=== PATIENT | male | born 1970 | race Caucasian/White ===

== ENCOUNTER 2018-06-06 16:15 | Inpatient (IN) | payer OTHER ==
[2018-06-06] MEDS ORDERED: AMIODARONE HCL 150 MG/3 ML VIAL IV ONE (16:28)
[2018-06-06] MEDS ORDERED: AMIODARONE HCL 150 MG/3 ML VIAL ONE (16:29)
[2018-06-06] MEDS ORDERED: LIDOCAINE 1% 300 MG/30 ML SDV ONE (16:34)
[2018-06-06] MEDS ORDERED: fentaNYL 100 MCG/2 ML INJ ONE (16:34)
[2018-06-06] MEDS ORDERED: NITROGLYCERIN 1,500 MCG/15 ML VIAL MISC ONE (16:35)
[2018-06-06] MEDS ORDERED: MIDAZOLAM 2 MG/2 ML VIAL ONE (16:35)
[2018-06-06] MEDS ORDERED: BIVALIRUDIN 250 MG/5 ML VIAL IV ONE ×2 (16:35→17:57)
[2018-06-06] MEDS ORDERED: IOPAMIDOL (ISOVUE 370) 100 ML BTL IV ONE (16:36)
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
[2018-06-06 16:50] LABS: PLATELET COUNT 214 10^3/uL (150-400)
[2018-06-06] MEDS ORDERED: ATROPINE SULFATE 1 MG/10 ML SYR ONE (16:56)
[2018-06-06] MEDS ORDERED: AMIODARONE HCL 150 MG/100 ML BAG (1.5 MG/ML) IV ONE (17:01)
[2018-06-06] MEDS ORDERED: METOPROLOL TARTRATE 5 MG/5 ML INJ ONE (17:12)
[2018-06-06] MEDS ORDERED: ASPIRIN 325 MG TAB ONE (17:57)
[2018-06-06] MEDS ORDERED: PRASUGREL HCL 10 MG TAB ONE (17:58)
[2018-06-06] MEDS ORDERED: OXYCODONE/APAP 5/325 TAB PO PRN (17:59)
[2018-06-06] MEDS ORDERED: ONDANSETRON 4 MG/2 ML VIAL IVP PRN (17:59)
[2018-06-06] MEDS ORDERED: HYDROCODONE/APAP 5/325 TAB PO PRN (17:59)
[2018-06-06] MEDS ORDERED: NITROGLYCERIN 0.4 MG BTL SL PRN (17:59)
[2018-06-06] MEDS ORDERED: TEMAZEPAM 15 MG CAP PO PRN (17:59)
[2018-06-06] MEDS ORDERED: PRASUGREL HCL 10 MG TAB PO ONE (17:59)
[2018-06-06] MEDS ORDERED: ATROPINE SULFATE 1 MG/10 ML SYR IVP PRN (17:59)
[2018-06-06] MEDS ORDERED: LORazepam 2 MG/ML INJ IVP PRN (17:59)
[2018-06-06] MEDS ORDERED: NS 1,000 ML IV SCH ×2 (18:00→19:00)
[2018-06-06] MEDS ORDERED: PROPOFOL/EMULSION 1,000 MG/100 ML BOTTLE IV ONE (18:32)
[2018-06-06] MEDS ORDERED: niCARdipine/NACL/200 ML BAG IV ONE (18:40)
[2018-06-06] MEDS ORDERED: PROPOFOL/EMULSION 100 ML IV SCH (18:48)
[2018-06-06] MEDS ORDERED: fentaNYL/NACL 100 ML IV SCH ×2 (18:48→19:00)
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
[2018-06-06] MEDS ORDERED: NS 250 ML IV PRN (19:00)
[2018-06-06] MEDS ORDERED: NS 1,000 ML IV ONE (19:00)
[2018-06-06] MEDS ORDERED: MIDAZOLAM HCL 50 MG in D5W 50 ML IV PRN (19:00)
[2018-06-06] MEDS ORDERED: fentaNYL 100 MCG/2 ML INJ IVP ONE (19:00)
[2018-06-06] MEDS ORDERED: niCARdipine/NACL 200 ML IV PRN (19:00)
[2018-06-06] MEDS ORDERED: MIDAZOLAM 2 MG/2 ML VIAL IVP PRN (19:00)
[2018-06-06] MEDS ORDERED: RN MUST ADD K & MAG PROT TO WORKLIST MISC ONE (19:00)
[2018-06-06] MEDS ORDERED: HEPARIN 10,000 UNIT/10 ML MDV (1,000 UNIT/ML) IVP PRN (19:04)
[2018-06-06] MEDS: VECURONIUM BROMIDE 50 MG in D5W 50 ML IV SCH (19:12)
[2018-06-06 19:17] LABS: INR 4.42 (0.83-1.16); PROTIME(PATIENT) 41.7 SEC (12.0-15.0)
[2018-06-06] MEDS: POTASSIUM Cl (KCl) 100 ML IV SCH ×2 (19:24→19:25)
[2018-06-06 20:01] LABS: CREATINE KINASE 2987 IU/L (0-224)
[2018-06-06] MEDS ORDERED: D5W 1,000 ML IV SCH (20:22)
[2018-06-06] MEDS ORDERED: INSULIN REGULAR HUMAN 100 UNIT in NS 100 ML IV SCH (20:22)
[2018-06-06] MEDS ORDERED: D50W 25 GM/50 ML SYR IVP PRN (20:22)
[2018-06-06] MEDS: CARVEDILOL 3.125 MG TAB PO SCH (20:51)
[2018-06-06] MEDS: LISINOPRIL 5 MG TAB PO SCH (20:51)
[2018-06-06] MEDS: ATORVASTATIN CALCIUM 40 MG TAB PO SCH (20:51)
[2018-06-06] MEDS: NOREPINEPHRINE BITARTRATE 4 MG in NS 500 ML IV PRN (21:02)
[2018-06-06] MEDS: HEPARIN/DEXTROSE 500 ML IV SCH (22:00)
--- NOTE | 2018-06-06 22:02 | CPIP ---
PROCEDURE PERFORMED: 1. Selective coronary angiography. 2. Left heart catheterization. 3. Left ventriculogram. 4. Percutaneous transluminal coronary angioplasty and stent placement of the mid right coronary stevie ry with the use of a 3.0 x 24 Synergy drug-eluting stent. 5. Percutaneous transluminal coronary angioplasty of an acute marginal branch for inadequate and YANCY I 1 flow post acute infarct angioplasty. 6. Intra-aortic balloon pump placement. 7. Placement of cooling catheter for purposes of targeted temperature management. PROCEDURE IN DETAIL: After emergent consent was implied by the emergency nature of the situation, th e patient was taken emergently to the catheterization laboratory. The regions of the right and left groins were cleaned, prepped, and draped in sterile fashion. Approximately 5 cc of 1% lidocaine was used for local anesthesia. A micropuncture set was used to gain access to the right common femoral a rtery with single entry puncture of the vessel, switched out for a 6-Ghanaian sheath. The patient unde rwent diagnostic angiography with the use of JL4 diagnostic catheter followed by a 6-Ghanaian JR4 janey ng catheter. The left main coronary is 8 mm in size, trifurcates into an LAD, circumflex, and ramus intermedius system. The circumflex is a 4 mm vessel with 30% obstruction in its proximal segment. I t gives rise to 2 important obtuse marginal branches. The ramus intermedius is small, approximately 1.5 mm in size and free of flow-limiting obstruction. The LAD is 3 mm in size, giving rise to a firs t and principal diagonal, which is approximately 2 mm in size. The LAD thereafter courses the anteri or apex. There was no evidence of flow-limiting obstruction, dissection, or thrombus. There was bethany dence of some distal xgye-lv-dziho collaterals. The right coronary artery was identified with a 6-Ghanaian guiding catheter. Initial picture of the [facility] coronary artery showed it to be a dominant vessel, approximately 4 mm in size and completely occl uded with DANISH 0 flow. Wire was quickly placed across the lesion and it was ballooned open with a 2. 0 x 15 Emerge balloon. There was improvement in flow to DANISH 2 post balloon inflation. The right co ronary artery was then stented secondarily with a 3.0 x 24 Synergy drug-eluting stent with excellent angiographic results and 10% residual stenosis status post PTCA and stent placement. There was excel lent DANISH 3 flow to the PDA and PLV branches. Of note is that there was sluggish flow within a large acute marginal branch. The wire was therefore redirected in this area and the 2.0 balloon was used to perform balloon angioplasty in this area to help break apart an embolized clot. Subsequent angiography documented brisk and DANISH 3 flow into the acute marginal branch with excellent flow in the region of the stent and no evidence of subacute thr ombosis or staining in that area. The patient underwent left heart catheterization, demonstrating elevated left ventricular end-diastol ic pressure measured at 16 mmHg. The patient underwent left ventriculogram in the HEAD projection, de monstrating severely depressed left ventricular systolic function. Ejection fraction is 25% to 30%. There is distal anterior wall and apical hypokinesis with severe basal inferior wall hypokinesis. O n LV gram, there may be a filling defect in the distal inferior wall consistent with intracardiac thr ombus. Because of the findings on LV gram, and persistent ST-segment elevation and complex ventricular rhyth m disturbance with salvos of ventricular bigeminy and nonsustained VT post acute infarct angioplasty, the decision was made to switch out the 6-Ghanaian sheath for an 8-Ghanaian balloon pump sheath. Angiog rashmi was performed of the femoral artery, and it was approximately 6 mm in size. We therefore proce eded with placement of intra-aortic balloon pump. This was appropriately zeroed, flushed, connected to the helium tubing as well as the pressure catheters, and was noted to be augmenting well. The pat ient received additional IV amiodarone as well as IV doses of Lopressor 5 mg x2 while in the slab lifting engineer . An NG tube was placed, and the patient was continued on Angiomax for anticoagulation. The patient wa s also given oral bolus dose of Effient at 60 mg along with aspirin 325 mg. We then proceeded with i dentification of the femoral vein. A J-wire was placed into the femoral vein under direct fluoroscop ic guidance, and that wire was used to dilate a tract into the femoral vein, and a cooling catheter w as placed and sutured into place with the distal ring for the cooling position in the common femoral vein for purposes of targeted temperature management. The patient will be taken to the ICU in critic al condition with guarded prognosis on a respirator, intra-aortic balloon pump at one-to-one augmenta tion, along with the HACA catheter with HACA orders to follow. The patient will be artificially para lyzed and sedated for purposes of the HACA protocol and targeted temperature management. The patient 's prognosis is, of course, grim, given his fae-[id number] arrest. Copy requested to: PCP /[id number]/MODL
[2018-06-06] MEDS ORDERED: PROTOCOL POTASSIUM 1 DOSE MISC PRN (22:07)
[2018-06-06] MEDS ORDERED: PROTOCOL MAGNESIUM 1 DOSE IV PRN (22:07)
[2018-06-06 22:43] LABS: CREATINE KINASE 5070 IU/L (0-224)
[2018-06-06] MEDS: PETROLAT,WHT/MIN OIL/SOD CHL 3.5 GM OPHT.OINT EACHEYE PRN (22:54)
[2018-06-07 01:05] LABS: INR 1.24 (0.83-1.16); PROTIME(PATIENT) 15.8 SEC (12.0-15.0)
[2018-06-07 01:21] LABS: CREATINE KINASE 5299 IU/L (0-224)
[2018-06-07] MEDS: VECURONIUM BROMIDE 50 MG in D5W 50 ML IV SCH ×3 (02:12→21:19)
[2018-06-07] MEDS ORDERED: SODIUM BICARBONATE 50 MEQ/50 ML SYR ONE (02:41)
[2018-06-07] MEDS ORDERED: SODIUM BICARBONATE 50 MEQ/50 ML SYR IVP ONE (02:45)
[2018-06-07] MEDS ORDERED: FUROSEMIDE 20 MG/2 ML VIAL IVP ONE (03:00)
[2018-06-07] MEDS: PROPOFOL/EMULSION 100 ML IV SCH ×2 (03:49→16:30)
[2018-06-07] MEDS: SODIUM BICARBONATE 150 MEQ in D5W 1,000 ML IV SCH ×2 (03:49→21:25)
[2018-06-07 05:13] LABS: CREATINE KINASE 4777 IU/L (0-224)
[2018-06-07 06:22] LABS: PLATELET COUNT 206 10^3/uL (150-400)
--- NOTE | 2018-06-07 06:48 | PDMN ---
Medical Necessity Medical necessity: Pt meets inpt criteria per MD order and MCG M-230, Myocardial Infarction, 2 days. 47 y/o admitted as cardiac alert, acute inferior CO, out of hospital cardiac arrest w/BLS and ACLS, urgently taken to senior cytogenetics laboratory director: PTCA/stent placement, balloon pump placement, ICU care, anticipate>2mn as pt in critical, guarded condition.
[2018-06-07 07:12] LABS: CREATINE KINASE 4633 IU/L (0-224)
--- NOTE | 2018-06-07 07:28 | CPEKG ---
Test Reason : OPEN Blood Pressure : / mmHG Vent. Rate : 065 BPM Atrial Rate : 066 BPM P-R Int : 187 ms QRS Dur : 106 ms QT Int : 469 ms P-R-T Axes : 077 056 001 degrees QTc Int : 488 ms Sinus rhythm Inferior infarct, recent Compared with 06/06/2018 inferior KALEB have improved; HR slower Confirmed by Arabella Jackson ([id number]) on 06/07/2018 7:27:50 AM Referred By: Naeem Downing Confirmed By:Arabella Jackson
[2018-06-07] MEDS: CARVEDILOL 3.125 MG TAB PO SCH ×2 (08:15→19:53)
[2018-06-07] MEDS ORDERED: ASPIRIN EC 325 MG TAB PO SCH (09:00)
[2018-06-07] MEDS ORDERED: PRASUGREL HCL 10 MG TAB PO SCH (09:00)
[2018-06-07] MEDS ORDERED: RN MUST ADD CA+ & PHOS PROTOCOL TO WORKLIST MISC SCH (09:00)
[2018-06-07] MEDS ORDERED: RN MUST REMOVE K+ & MG+ PROTOCOL FRM WORKLIST MISC SCH (09:00)
[2018-06-07] MEDS: LISINOPRIL 5 MG TAB PO SCH (09:23)
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
[2018-06-07] MEDS: NOREPINEPHRINE BITARTRATE 4 MG in NS 500 ML IV PRN (10:09)
--- NOTE | 2018-06-07 10:47 | GHP ---
DATE OF ADMISSION: 06/06/2018 REFERRING PHYSICIAN: Naeem Downing MD Pulmonary/Critical Care Consultation REASON FOR REFERRAL: Evaluation and management of respiratory failure and cardiac arrest. HISTORY: The patient is a 47-year-old male, who was working [place] his [place], just outside of [place], when he came back from some heart exertion in the cold. He laid down on the floor in front of firep lace and a friend walked out of the room, then came back in shortly thereafter and witnessed him havi ng seizure-like activity. He was unresponsive and bystander CPR was begun immediately. EMS was call ed. He had continuous bystander CPR, then an AED was placed by EMS and the patient was shocked x3 an d a round of drugs were given. The patient returned spontaneous circulation, and has had spontaneous circulation since that time. He was flown here via air helicopter. Apparently, at some point after return of spontaneous circulation, he had some spontaneous vocalizations, but while in the helicopte r, he dropped his oxygen saturations, became unable to protect his airway, had some posturing-like ac tivity, so was paralyzed, sedated and intubated. He has been unresponsive since that time. He was s een in the emergency department by Dr. Downing, who took him urgently to the catheterization lab, [facility] with spontaneous circulation. He was found to have an occluded right coronary artery, as was suspe cted from the ECGs. This was treated with angioplasty and stenting with an excellent result. The pa tient's ejection fraction was estimated at 25%-30% with severe basal inferior wall hypokinesis. Ther e was also possible intracardiac thrombus. There was some nonsustained VT, status post the angioplas ty. An intra-aortic balloon pump was placed and the patient was started on the HACA protocol. PAST MEDICAL HISTORY: Negative/unknown. MEDICATIONS: Unknown. ALLERGIES: No known drug allergies per the patient's mother. 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 FAMILY HISTORY: Unknown. REVIEW OF SYSTEMS: Unobtainable. PHYSICAL EXAMINATION: GENERAL: The patient is intubated, sedated and paralyzed. VITAL SIGNS: Bloo d pressure 120/60 with a heart rate of 60. He is cooled to 33 degrees. His oxygen saturations are i n the 90s. HEENT: Normocephalic and atraumatic. NECK: No adenopathy. Trachea is midline. CHEST: Clear to auscultation. CARDIAC: Regular rate and rhythm with an intra-aortic balloon pump. ABDOM EN: Soft. Bowel sounds are hypoactive. EXTREMITIES: No clubbing, cyanosis, or edema. NEURO: The patient is intubated and sedated. His pupils are 2-3 mm and nonreactive. LABORATORY: Chemistry group shows a creatinine of 1.1, AST is 356 with an LDH of 2314, and troponin is 53, down from 66. Hemoglobin is 15.7, white blood count is 24.8 with 2% bands. An INR is 1.2. A n arterial blood gas shows a pH of 7.39, with a pO2 of 89, a CO2 of 29, and a bicarbonate of 19 on 90 % oxygen with a respiratory rate of 30, a tidal volume of 470 and a PEEP of 15. Toxicology screen is positive for marijuana and benzodiazepines. IMAGING: Chest x-ray shows some right upper lung field infiltrate, otherwise clear. The endotrachea l tube and intra-aortic balloon pump are appropriately positioned. Images were reviewed by me. ASSESSMENT: 1. Status post suk-bs-maijuavy cardiac arrest. The patient had return of spontaneous circulation fo llowing continuous bystander cardiopulmonary resuscitation and an automated external defibrillator. 2. Status post right coronary artery, inferior myocardial infarction. The patient apparently had a large infarct with significant residual regional wall motion abnormality and a reduced ejection fract ion. He had blood pressures as low as the 60s earlier this morning, responded to pressors. He is cu rrently on norepinephrine to maintain blood pressure and has not been on anything more. 3. Possible left ventricular intracardiac thrombus. This was seen on angiography. The patient is o n heparin. 4. Respiratory failure. The patient has been intubated since the helicopter flight here. He had si gnificant hypoxemia overnight, for unclear reasons, as his chest x-ray was fairly clear. This is imp roved this morning, and he is currently on 60% oxygen. His PEEP was as high as 15, now turned down t o 12, and I will be turning it down further. 5. Elevated liver function tests. These are likely due to shock. RECOMMENDATIONS: 1. Continue the HACA protocol. This will be continued until rewarming begins at about 6:00 p.m. ton ight. 2. Continue to try and wean down FiO2 and PEEP as tolerated. Acid-base status will be monitored. Simon cleary was started on a bicarb drip last night, due to worsening metabolic acidosis, but this is improved and the bicarb drip will be turned down with future changes to be directed by the arterial blood gas. 3. Follow liver function tests, given the elevated transaminases. 55 minutes of critical care time, managing hypoxemia and metabolic acidosis. /[id number]/MODL
[2018-06-07] MEDS: ATORVASTATIN CALCIUM 40 MG TAB PO SCH (11:11)
--- NOTE | 2018-06-07 12:08 | ASMTCMCOM ---
CM Note CM Note Notes: Late Entry from 06/06/18: Pt arrived to the ED via [employer] as a Cardiac Alert. 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 After getting to the house, he lay down on the floor in front of the fire to warm up and then a friend that was there found him unresponsive and having seizure like activity; the friend initiated CPR and EMS was called. Pt reportedly had ROSC but then required intubation while in the field [employer] to the ED. See H&P for additional details if needed. Pt was taken to the clam bed laborer, pt's RCA was occluded and a stent was placed. Pt was placed on an IABP and HACA/ TTM was initiated. Pt's close family friend and icu clerk of the ranch, Danelle Albaro ([phone]) arrived to the ED and provided the pt's mother's contact info. Pt's mother, Nilda Ndiaye ([phone]) lives in [place]. This CM called Nilda Diaz and provided updates as they became available. Nilda Diaz is reportedly going to be arriving into [place] today (06/07) around Noon. Pt's father a few years ago from cancer and Nilda Diaz's uhdvtl-qu-pub also very recently (memorial service/ was this past week or coming up?). Danelle said she has known the pt for more than 25 years and the pt has a large and strong supportive group of friends in [place]. Pt is a rebolledo and per Danelle very active, fit and tries to lead a healthy lifestyle. Various other friends including Pat and Isabel Andrew, Dolores, Rene, etc. later arrived to [facility]. Nilda Diaz gave permission to provide pt's friends with pt's status and updates. Dr Downing was able to sit w/pt's friends and update them on pt's status and POC. Neuro status unknown at this time; hopefully rewarming process will start 1800 tonight. CM to follow. Date Signed: 06/07/2018 12:07 PM Electronically Signed By:Vivian Darden RN
[2018-06-07 12:52] LABS: INR 1.03 (0.83-1.16); PROTIME(PATIENT) 13.7 SEC (12.0-15.0)
--- NOTE | 2018-06-07 13:16 | ECHO ---
[email or web address] [address] [address] Main: [phone] Fax: Transthoracic Echocardiogram Name: JUAN LUIS MCGUIRE MR#: [id number] Study Date: 06/07/2018 Study Time: 12:09 PM Date of : 1970 Age: 47 year(s) Height: 172.7 cm (68 in.) Weight: 76.2 kg (168 lb.) BSA: 1.9 m2 Gender: Male Examination: Echo Indication: s/p STEMI Image Quality: Technically Difficult Contrast: Requested by: Arabella Jackson BP: / Heart Rate: Rhythm: Indication: s/p STEMI Procedure Staff Cofounder: Nasra Hui RDCS Reading Physician: Salvador Lambert MD Requesting Provider: Conclusions: Normal size left ventricle. No LV hypertrophy. Low normal left ventricular systolic function. EF is 50 %. The basal inferoseptal, basal inferolateral and mid inferolateral Mildly reduced RV function. The left atrium is normal in size. The right atrium is normal in size. Trivial pericardial effusion. No echocardiographic evidence of hemodynamic compromise. Measurements: Chambers Valvular Assessment AV/MV Valvular Assessment TV/PV Normal Normal Normal Name Value Range Name Value Range Name Value Range Ao Onelia (2D): 3.5 cm (1.4 cm-2.6 MV E Vmax: 0.29 m/s ( - ) cm) MV A Vmax: 0.30 m/s ( - ) IVSd (2D): 1.1 cm (0.6 cm-1.1 MV E/A: 0.97 ( - ) cm) MV PHT: 0.074 s ( - ) LVDd (2D): 4.2 cm (4.2 cm-5.9 MVA (PHT): 3.0 s ( - ) cm) LVDs (2D): 3.5 cm (2.1 cm-4 cm) LVPWd (2D): 1.1 cm (0.6 cm-1 cm) LVOTd 1.8 cm 1.8 cm mm LVEF (2D): 50 (>=54 %) Continued Measurements: Chambers Valvular Assessment AV/MV Patient: JUAN LUIS MCGUIRE Study Date: 06/07/2018 Page 1 of 2 12:09 PM Name Value Name Value LADs: 2.8 cm MV DecTime: 236 m/s Findings: Left Ventricle: Normal size left ventricle. No LV hypertrophy. Low normal left ventricular systolic function. EF is 50 %. The basal inferoseptal, basal inferolateral and mid inferolateral wall segments are hypokinetic. All remaining scored wall segments are normal. Right Ventricle: Normal size right ventricle. Mildly reduced RV function. Left Atrium: The left atrium is normal in size. Right Atrium: The right atrium is normal in size. Mitral Valve: The mitral valve is normal in appearance and function. Technically difficult assessment of mitral valve. Aortic Valve: Aortic valve is not visualized. Tricuspid Valve: The tricuspid valve appears normal. Pulmonic Valve: Pulmonary valve not well visualized. Aorta: The aorta is normal. Normal size aortic root measuring 3.5 cm. Pericardium: Trivial pericardial effusion. No echocardiographic evidence of hemodynamic compromise. Exam Comments: Patient supine, some imaging off axis, technically difficult. (No Signature Object) Wall Motion Scores -1 - Not Scored, 0 - Unknown, 1 - Normal or hyperkinesia, 2 - Hypokinesia, 3 - Akinesia, 4 - Dyskinesia, 5 - Aneurysm Patient: JUAN LUIS MCGUIRE Study Date: 06/07/2018 Page 2 of 2 12:09 PM [id number]
[2018-06-07] MEDS: POTASSIUM Cl (KCl) 50 ML IV SCH ×3 (14:00→15:16)
[2018-06-07 15:37] LABS: CREATINE KINASE 4618 IU/L (0-224)
[2018-06-07 18:08] LABS: PLATELET COUNT 167 10^3/uL (150-400)
[2018-06-07] MEDS: PETROLAT,WHT/MIN OIL/SOD CHL 3.5 GM OPHT.OINT EACHEYE PRN (21:19)
[2018-06-08 01:15] LABS: PROTIME(PATIENT) 13.4 SEC (12.0-15.0)
[2018-06-08] MEDS: PROPOFOL/EMULSION 100 ML IV SCH ×4 (02:52→20:46)
[2018-06-08] MEDS: HEPARIN/DEXTROSE 500 ML IV SCH (02:53)
[2018-06-08 06:09] LABS: PLATELET COUNT 142 10^3/uL (150-400)
[2018-06-08] MEDS: PETROLAT,WHT/MIN OIL/SOD CHL 3.5 GM OPHT.OINT EACHEYE PRN ×2 (06:09→08:52)
[2018-06-08] MEDS ORDERED: PROTOCOL K PHOSPHATE 1 DOSE IV PRN (08:13)
[2018-06-08] MEDS ORDERED: PROTOCOL CALCIUM 1 DOSE IV PRN (08:13)
[2018-06-08] MEDS: FAMOTIDINE 20 MG/NACL 50 ML IV SCH ×2 (08:51→20:39)
[2018-06-08] MEDS: PRASUGREL HCL 10 MG TAB TUBE SCH (08:52)
[2018-06-08] MEDS: ASPIRIN 325 MG TAB TUBE SCH (08:52)
[2018-06-08] MEDS: ATORVASTATIN CALCIUM 40 MG TAB TUBE SCH (08:52)
--- NOTE | 2018-06-08 10:41 | PDCARPN ---
Cardiology Progress Note Assessment/Plan: Mr. Cha is a 47-year-old male admitted June 06 after suffering an out-of- hospital cardiac arrest. Received immediate bystander CPR and had return of spontaneous circulation during helicopter transport to [facility]. An acute ST-segment elevation myocardial infarction was apparent on arrival. He underwent emergent cardiac catheterization and PCI of the RCA. Coronary Artery Disease: Cardiac catheterization demonstrated a high grade lesion in the mid-RCA which underwent PCI using a single drug coated stent. The LAD and circumflex had noncritical disease. - Aggressive secondary prevention. He is on beta angelica, CHONG inhibitor, statin , and DAPT. Ischemic Cardiomyopathy: LVEF was 20-25% of the time of his catheterization. An echocardiogram performed on the second hospital day, reported his LVEF as 50% with inferior and inferolateral hypokinesis. There was mention of a possible intracavitary thrombus based on his left ventriculogram. He is being supported with an intra-aortic balloon pump. Intravenous pressors were discontinued yesterday. During discussion with the patient's family/friends, I set the balloon pump at a 1:8 ratio. He maintained adequate blood pressure for several minutes. - Continue current medications and will titrate beta angelica and CHONG inhibitor as allowed. - Will plan for repeat echocardiography and possibly ALECIA prior to discharge to assess for LV thrombus. - Will plan to DC IABP later today. Heparin drip will be held starting at noon and will be resumed several hours later. Anticoagulation will be continued until question of LV thrombus is resolved. Neurologic Status: The patient is in the rewarming phase of targeted temperature management. Rewarming should be completed by late this afternoon. He is still on intravenous propofol and vecuronium. - Status should become clearer in the next few days. 06/08/18 10:41 Subjective: Intubated/sedated. Reviewed/Discussed With: family Objective: Vital Signs (8 Hrs) Temp Pulse Resp Pulse Ox 06/08/18 09:00 35.6 C L 78 30 H 94 06/08/18 08:00 35.5 C L 70 30 H 96 06/08/18 06:00 35.1 C L 68 30 H 96 06/08/18 05:00 34.8 C L 76 30 H 97 06/08/18 04:00 34.7 C L 72 30 H 96 06/08/18 03:00 34.5 C L 76 30 H 96 Intake/Output (24 Hrs) 06/07/18 06/08/18 06/09/18 05:59 05:59 05:59 Intake Total 2365 3088.6 Output Total 2250 1370 Balance 115 1718.6 Intake: IV Intake (ml) 1075 158 IV Infused (ml) 1290 2930.6 D5w 1,000 ml @ 25 mls/hr 213 366 IV CONT ROBERT Rx#: [id number] Heparin/Dextrose 500 ml @ 140 360 Per Protocol IV CONT ROBERT Rx#:[id number] Insulin Regular Human 100 9 12 unit In Ns 100 ml @ As Directed IV AD ROBERT Rx#: [id number] Norepinephrine Bitartrate 280 493 4 mg In Ns 500 ml @ Per Protocol IV CONT PRN Rx#: [id number] POTASSIUM Cl (KCl) 100 ml 178 @ 100 mls/hr IV Q1H ROBERT Rx#:[id number] Propofol/Emulsion 100 ml 85 203 @ Per Protocol IV CONT ROBERT Rx#:[id number] Sodium Bicarbonate 578 267 5710 meq In D5w 1,000 ml @ 100 mls/hr IV CONT ROBERT Rx#: [id number] Vecuronium [place] 50 mg 49 110.3 In D5w 50 ml @ Per Protocol IV CONT ROBERT Rx#: [id number] fentaNYL/NACL 100 ml @ 22 30.3 Per Protocol IV CONT ROBERT Rx#:[id number] niCARdipine/NACL 200 ml @ 91 Per Protocol IV CONT PRN Rx#:[id number] Output: Urine (ml) 2250 1300 Catheter 2250 1300 OG Tube Output (ml) 0 70 Non-weighted Oral Stomach 0 70 Other: Weight 76.6 kg Result Diagrams: 06/08/18 06:00 06/08/18 06:00 Cardiac Labs: Cardiac Lab Results (72 Hrs) 06/07/18 06/07/18 06/07/18 11:50 06:15 04:10 CK-MB (CK-2) Fraction 493.00 H 547.00 H 524.00 H Troponin I 53.100 H 53.000 H 66.000 H 06/07/18 06/06/18 06/06/18 00:15 21:10 18:45 CK-MB (CK-2) Fraction 546.00 H 389.00 H 282.00 H Troponin I 71.500 H 79.300 H 46.500 H - Physical Exam Constitutional: other (Fit appearing male currently intubated and sedated.) Eyes: anicteric sclera Ears, Nose, Mouth, Throat: moist mucous membranes Cardiovascular: regular rate and rhythm, no murmurs, no gallops Respiratory: clear to auscultate bilat (anteriorly) Gastrointestinal: normoactive bowel sounds, no masses Skin: no rashes, no edema Psychiatric: other (sedated) ICD10 Worksheet Patient Problems: Problems Problem Status Onset AMI inferior wall Acute Cardiac arrest Acute
[2018-06-08] MEDS: VECURONIUM BROMIDE 50 MG in D5W 50 ML IV SCH (11:00)
[2018-06-08] MEDS: LISINOPRIL 5 MG TAB PO SCH (11:04)
[2018-06-08] MEDS: CARVEDILOL 3.125 MG TAB PO SCH ×2 (11:04→19:46)
--- NOTE | 2018-06-08 12:36 | PDINTPN ---
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 Bystander CPR was initiated quickly. Paramedics reportedly arrived in approximately 15 min. Had a shockable rhythm with return of spontaneous circulation/pulse and blood pressure on seen. Intubated during transport. Transported to [facility] by helicopter. HACA: On protocol, close to being rewarmed. On sedation as well as paralytics currently. Acute respiratory failure: Secondary to arrest, with issues as above. Acute myocardial infarction. Thrombus in right coronary artery. Status post stenting of the right coronary artery. Cardiogenic shock. Present initially. Intra-aortic balloon pump placed. Decreased today to 1:2. Plan for possible removal this afternoon. Ejection fraction 50% yesterday with evidence of inferior hypokinesis and mild right ventricular dysfunction. Anticoagulation: On heparin drip. Therapeutic. Possible aspiration? Chest x-ray yesterday showed some patchy infiltrates on the right side. Patient has no secretions, is afebrile, and is on no antibiotics. Will recheck x-ray today and consider coverage for aspiration if indicated. Prophylaxis: Heparin drip as above. On famotidine. Metabolic: Acidosis. On a bicarb drip. May be able to decrease or stop this. Will await the next blood gas. Hypokalemia, hypocalcemia present: Per protocols. Possible anoxic brain injury. Too early to tell. Will need to await full rewarming and 24 hr after he is fully rewarmed and sedative/paralytics are out of his system to better assess. Neurology consultation can be considered at that time. Prognosis: Remains guarded. As above. Plan: Continue care per the HACA protocol. Continue rewarming. Once he is at target temperature began to wean paralytics and sedatives. Follow blood gas, CBC, chemistries. Repeat chest x-ray today and in a.m.. If there is evidence of pulmonary infiltrates consistent with aspiration I will add Invanz. Wean bicarbonate drip as tolerated. Continue anticoagulation. Continue other current medications. Possible removal of a IABP today: Per Cardiology. Appreciate their support. Over 1 hr of critical care time spent directly with the patient. Discussed with the patient's mother and extended network of friends, respiratory, nursing , Cardiology, and the ICU multi disciplinary team. Subjective: Sedated, paralyzed, on ventilator. On HACA, rewarming Objective: Vital Signs Temp Pulse Resp BP Pulse Ox 36.3 C 71 30 H 149/80 H 93 06/08/18 12:05 06/08/18 12:05 06/08/18 12:05 06/06/18 18:31 06/08/18 12:05 Laboratory Results 06/08/18 06:00 06/08/18 06:00 06/07/18 06/08/18 06/09/18 05:59 05:59 05:59 Intake Total 2365 3088.6 Output Total 2250 1370 Balance 115 1718.6 PT 13.4 SEC (12.0-15.0) 06/08/18 00:15 INR 1.00 (0.83-1.16) 06/08/18 00:15 Laboratory Tests 06/08/18 06/08/18 06/08/18 04:06 06:00 12:12 Heparin Anti-Xa, Unfract 0.44 pCO2 28 L pO2 51 L ABG pH 7.53 H ABG O2 Saturation 90 L O2 Concentration % 60 Set Respiration Rate 30 Tidal Volume 500 PEEP 5 Calcium 7.9 L Ionized Calcium 1.08 L Phosphorus 3.1 Magnesium 1.6 CXR: Pending. Physical Exam - Physical Exam General Appearance: unresponsive, No alert (Sedated, paralyzed, on the ventilator) EENT: PERRL/EOMI, ET tube, other (NG tube to suction) Neck: normal inspection (No obvious JVD) Respiratory: lungs clear (Anteriorly), decreased breath sounds (At bases), No rales, No rhonchi Cardiac/Chest: regular rate, rhythm, other (IABP in place, now at 1-2) Abdomen: non-tender (Can't assess), soft, No normal bowel sounds (Quiet) Male Genitalia: other (Bustamante catheter in place. Adequate urine output) Skin: normal color, warm/dry Extremities: No pedal edema Neuro/Psych: cognition abnormalities (Can't assess), No no motor/sensory deficits (Can't assess) ICD10 Worksheet Patient Problems: Problems Problem Status Onset AMI inferior wall Acute Cardiac arrest Acute
[2018-06-08 13:54] LABS: INR 0.97 (0.83-1.16); PROTIME(PATIENT) 13.1 SEC (12.0-15.0)
[2018-06-08] MEDS ORDERED: LIDOCAINE 1% 300 MG/30 ML SDV ONE (14:10)
[2018-06-08] MEDS: ERTAPENEM 1 GM in NS 100 ML IV SCH (15:27)
[2018-06-08] MEDS ORDERED: MAGNESIUM SULF 1 GM/DEXTROSE 100 ML IV ONE (15:52)
[2018-06-08] MEDS ORDERED: CALCIUM GLUCONATE 50 ML IV ONE (15:52)
[2018-06-08] MEDS ORDERED: CALCIUM GLUCONATE 1 GM in D5W 50 ML IV ONE (16:00)
[2018-06-08] MEDS: POTASSIUM Cl (KCl) 50 ML IV SCH ×3 (16:26→17:23)
[2018-06-08 18:33] LABS: PLATELET COUNT 136 10^3/uL (150-400)
[2018-06-09] MEDS ORDERED: POTASSIUM Cl (KCl) 50 ML IV ONE ×2 (00:44→07:09)
[2018-06-09] MEDS: PROPOFOL/EMULSION 100 ML IV SCH (00:51)
[2018-06-09 06:09] LABS: INR 1.09 (0.83-1.16); PROTIME(PATIENT) 14.3 SEC (12.0-15.0)
[2018-06-09 06:12] LABS: PLATELET COUNT 125 10^3/uL (150-400)
[2018-06-09] MEDS ORDERED: CALCIUM GLUCONATE 50 ML IV ONE (07:09)
[2018-06-09] MEDS ORDERED: MAGNESIUM SULF 1 GM/DEXTROSE 100 ML IV ONE (07:09)
[2018-06-09] MEDS: ATORVASTATIN CALCIUM 40 MG TAB TUBE SCH (07:39)
[2018-06-09] MEDS: CARVEDILOL 3.125 MG TAB PO SCH ×2 (07:39→17:49)
[2018-06-09] MEDS: PRASUGREL HCL 10 MG TAB TUBE SCH (07:40)
[2018-06-09] MEDS: LISINOPRIL 5 MG TAB PO SCH (07:40)
[2018-06-09] MEDS: ASPIRIN 325 MG TAB TUBE SCH (07:40)
[2018-06-09] MEDS ORDERED: MIDAZOLAM 2 MG/2 ML VIAL ONE ×3 (07:45→08:10)
[2018-06-09] MEDS ORDERED: LIDOCAINE 1% 300 MG/30 ML SDV ONE (07:49)
[2018-06-09] MEDS ORDERED: LIDOCAINE 1% 300 MG/30 ML SDV MISC ONE (07:50)
[2018-06-09] MEDS ORDERED: CALCIUM GLUCONATE 1 GM in D5W 50 ML IV ONE (08:00)
[2018-06-09] MEDS ORDERED: MIDAZOLAM 2 MG/2 ML VIAL IVP ONE (08:05)
--- NOTE | 2018-06-09 08:09 | PDINTPN ---
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 Bystander CPR was initiated quickly. Paramedics reportedly arrived in approximately 15 min. Had a shockable rhythm with return of spontaneous circulation/pulse and blood pressure on seen. Intubated during transport. Transported to [facility] by helicopter. HACA: Rewarming and off protocol late yesterday afternoon. Off paralytics and sedation except for 25 of fentanyl. Awake and alert. Moves all extremities. Acute respiratory failure: Resolving. On 40%. Good NIF and vital capacity. ABG is actually venous. Can extubate later this morning post therapeutic bronchoscopy. Acute myocardial infarction. Thrombus in right coronary artery. Status post stenting of the right coronary artery. Cardiogenic shock. Present initially. Intra-aortic balloon pump placed. Removed yesterday afternoon. Ejection fraction 50% with evidence of inferior hypokinesis and mild right ventricular dysfunction post arrest. Hemodynamic stable. Doing well. Anticoagulation: On heparin drip. Therapeutic. Aspiration pneumonia. Chest x-ray suggestive. Increased secretions today. Has an area of atelectasis/infiltrate at the right base consistent with mucus plugging. For therapeutic bronchoscopy prior to extubation.. Prophylaxis: Heparin drip as above. On famotidine. Metabolic: Acidosis, resolved. Hypocalcemia, on replacement protocols. Elevated liver function tests: Likely secondary to mild shock liver. Possible anoxic brain injury. Does not appear he has suffered any anoxic injury. Awake and alert, responsive, appropriate, moving all extremities. Prognosis: Appears quite good at this point. Neurologic status appears to be intact. Hemodynamic stable. Plan: Bronchoscopy this morning to remove secretions and obtain cultures. If he does well post bronchoscopy he will be extubated. Start to back off on supportive medications, drips, etc. Continue antibiotics, with bronchopulmonary therapies as needed. Continue anticoagulation and cardiac medications. Continue care in the intensive care unit certainly through today. Cog and bedside swallow evaluations post extubation. Follow laboratory, chest x-ray. 40 min of critical care time spent directly with the patient initially addressing the above issues. This did not include therapeutic bronchoscopy. Discussed with respiratory, nursing. Will discuss with family and other physicians, and the ICU multi disciplinary team later. Subjective: Awake, alert, responsive. Minimal discomfort. No distress. BUNN to command Objective: Vital Signs Temp Pulse Resp BP Pulse Ox 37.7 C 89 13 113/66 98 06/09/18 07:00 06/09/18 07:00 06/09/18 07:00 06/09/18 07:00 06/09/18 07:00 Laboratory Results 06/09/18 05:45 06/09/18 05:45 06/08/18 06/09/18 06/10/18 05:59 05:59 05:59 Intake Total 3088.6 1794.7 Output Total 1370 950 Balance 1718.6 844.7 PT 14.3 SEC (12.0-15.0) 06/09/18 05:50 INR 1.09 (0.83-1.16) 06/09/18 05:50 Laboratory Tests 06/09/18 06/09/18 06/09/18 05:45 05:50 06:55 APTT 92.1 H pCO2 39 H pO2 38 L* ABG pH 7.45 ABG O2 Saturation 69 L Calcium 8.1 L Ionized Calcium 1.11 L Phosphorus 2.9 Magnesium 1.9 AST 140 H ALT 98 H Albumin 2.9 L Blood gas above is venous. CXR: Right lower zone atelectasis/consolidation. Increased aeration of right lung. Lines and tubes in good position. Physical Exam - Physical Exam General Appearance: alert, no apparent distress, other (On vent) EENT: PERRL/EOMI, ET tube, other (OG tube to suction) Neck: normal inspection (No JVD) Respiratory: lungs clear (Anteriorly), decreased breath sounds (At bases), rhonchi (Few rhonchi present centrally), No wheezing Cardiac/Chest: regular rate, rhythm, No gallop Abdomen: non-tender, soft, No normal bowel sounds (Decreased, present) Male Genitalia: other (Bustamante catheter in place, adequate urine output.) Skin: normal color, warm/dry Extremities: No pedal edema Neuro/Psych: no motor/sensory deficits, No cognition abnormalities ICD10 Worksheet Patient Problems: Problems Problem Status Onset Cardiac arrest Acute AMI inferior wall Acute
[2018-06-09] MEDS: ERTAPENEM 1 GM in NS 100 ML IV SCH (08:39)
[2018-06-09] MEDS ORDERED: NS W/ 20 KCl/L 1,000 ML IV SCH (09:00)
[2018-06-09] MEDS: FAMOTIDINE 20 MG/NACL 50 ML IV SCH (09:10)
--- NOTE | 2018-06-09 10:21 | GPN ---
[f rep st] PROCEDURE NOTE DATE OF PROCEDURE: 06/09/2018 PROCEDURE: Therapeutic bronchoscopy. INDICATION: Increasing secretions with mucus plugging and atelectasis on the right side in a patient status post gsv-nc-hxggdgyv cardiac arrest on the ventilator. This procedure is being done to remov e secretions and obtain cultures prior to extubation. PROCEDURE NOTE: The procedure was performed in the patient's room in the intensive care unit. [facility] was obtained verbally from the patient. He was on a fentanyl drip and was bolused with 5 0 mcg of fentanyl prior to the procedure. He was given 2 mg of intravenous Versed for conscious carine tion. Appropriate time-out was performed. The fiberoptic bronchoscope was passed via an adapter on the end of the patient's endotracheal tube a nd into the distal trachea. There were some secretions in the distal trachea, which extended down pr imarily into the right side. Secretions were numerous and thick, consistent with mucus plugging. Se cretions were removed with suction and lavage. Secretions were significantly less on the left side. All areas were observed to at least the segmental level. At the end of the procedure, almost no sec retions persisted; however, a few were seen coming up from more distal segments. Cultures were sent. Approximately 15 mL of 1% lidocaine was used throughout the procedure for topical anesthesia. Ther e were no complications. Vital signs and oxygen saturations on 100% oxygen on the ventilator remaine d stable throughout the procedure. /[id number]/MODL
--- NOTE | 2018-06-09 10:31 | PDCARPN ---
Cardiology Progress Note Assessment/Plan: Mr. Cha is a 47-year-old male admitted June 06 after suffering an out-of- hospital cardiac arrest. Received immediate bystander CPR and had return of spontaneous circulation during helicopter transport to [facility]. An acute ST-segment elevation myocardial infarction was apparent on arrival. He underwent emergent cardiac catheterization and PCI of the RCA. Coronary Artery Disease: Cardiac catheterization demonstrated a high grade lesion in the mid-RCA which underwent PCI using a single drug coated stent. The LAD and circumflex had noncritical disease. - Aggressive secondary prevention. He is on beta angelica, CHONG inhibitor, statin , and DAPT. - DAPT currently consists of aspirin and Effient. Will get genetic testing for clopidogrel metabolism. Ischemic Cardiomyopathy: LVEF was 20-25% of the time of his catheterization. An echocardiogram performed on the second hospital day, reported his LVEF as 50% with inferior and inferolateral hypokinesis. There was mention of a possible intracavitary thrombus based on his left ventriculogram. IABP DCed yesterday - Continue current medications and will titrate beta angelica and CHONG inhibitor as allowed. - Limited echo with Definity today to assess for LV thrombus Neurologic Status: Pt was extubated this am. Is conversant and using humor. No apparent neuro deficits. 06/09/18 10:28 Reviewed/Discussed With: family, hospitalist Objective: Vital Signs (8 Hrs) Temp Pulse Resp BP Pulse Ox 06/09/18 10:00 37.7 C 101 H 19 120/65 98 06/09/18 09:00 37.6 C 97 13 111/67 96 06/09/18 08:05 102 H 13 107/61 97 06/09/18 07:55 94 96/59 L 96 06/09/18 07:50 97 14 114/63 97 06/09/18 07:00 37.7 C 89 13 113/66 98 06/09/18 06:44 108 H 100 06/09/18 06:00 37.7 C 100 15 99/62 L 96 06/09/18 05:00 37.6 C 88 24 H 97/59 L 100 06/09/18 04:00 37.5 C 90 20 96/64 L 99 06/09/18 03:30 92 20 98 06/09/18 03:00 37.5 C 90 20 94/58 L 98 Intake/Output (24 Hrs) 06/08/18 06/09/18 06/10/18 05:59 05:59 05:59 Intake Total 3088.6 1794.7 Output Total 1370 950 Balance 1718.6 844.7 Intake: IV Intake (ml) 158 340 IV Infused (ml) 2930.6 1424.7 D5w 1,000 ml @ 25 mls/hr 366 IV CONT ROBERT Rx#: [id number] Heparin/Dextrose 500 ml @ 360 213.9 Per Protocol IV CONT ROBERT Rx#:[id number] Insulin Regular Human 100 12 unit In Ns 100 ml @ As Directed IV AD ROBERT Rx#: [id number] Norepinephrine Bitartrate 493 4 mg In Ns 500 ml @ Per Protocol IV CONT PRN Rx#: [id number] POTASSIUM Cl (KCl) 100 ml 193.7 @ 100 mls/hr IV Q1H ROBERT Rx#:[id number] POTASSIUM Cl (KCl) 50 ml 50 @ 50 mls/hr IV ONCE ONE Rx#:[id number] Propofol/Emulsion 100 ml 203 397 @ Per Protocol IV CONT ROBERT Rx#:[id number] Sodium Bicarbonate 150 1356 444 meq In D5w 1,000 ml @ 100 mls/hr IV CONT ROBERT Rx#: [id number] Vecuronium [place] 50 mg 110.3 32 In D5w 50 ml @ Per Protocol IV CONT ROBERT Rx#: [id number] fentaNYL/NACL 100 ml @ 30.3 94.1 Per Protocol IV CONT ROBERT Rx#:[id number] Tube Flush (ml) 30 Output: Urine (ml) 1300 875 Catheter 1300 875 OG Tube Output (ml) 70 75 Non-weighted Oral Stomach 70 75 Result Diagrams: 06/09/18 05:45 06/09/18 05:45 Cardiac Labs: Cardiac Lab Results (72 Hrs) 06/07/18 06/07/18 06/07/18 11:50 06:15 04:10 CK-MB (CK-2) Fraction 493.00 H 547.00 H 524.00 H Troponin I 53.100 H 53.000 H 66.000 H 06/07/18 06/06/18 06/06/18 00:15 21:10 18:45 CK-MB (CK-2) Fraction 546.00 H 389.00 H 282.00 H Troponin I 71.500 H 79.300 H 46.500 H - Physical Exam Constitutional: no apparent distress Eyes: anicteric sclera Ears, Nose, Mouth, Throat: moist mucous membranes Cardiovascular: regular rate and rhythm, no murmurs, no rubs, no gallops Respiratory: clear to auscultate bilat Gastrointestinal: normoactive bowel sounds, no tenderness, no masses Skin: no rashes, no edema Neurologic: AAOx3 Psychiatric: not anxious ICD10 Worksheet Patient Problems: Problems Problem Status Onset Cardiac arrest Acute AMI inferior wall Acute
--- NOTE | 2018-06-09 10:47 | GCON ---
[f rep st] CONSULTATION REFERRING PHYSICIAN: Chapo Stovall MD CHIEF COMPLAINT: Post HACA neurologic exam. HISTORY OF PRESENT ILLNESS: Mr. Cha is a very pleasant 47-year-old gentleman who suffered an cfm-hm-ajgrengo cardiac arrest. He received immediate by standard CPR for 10-15 minutes and had a shockable rhythm en route to the hospital. He was also given CLS medication for stabilization. This resulted in spontaneous resumption of circulation. He was seen as a cardiac alert and was found to have an acute segment ST-segment TX and had emergent cardiac catheterization with PCI of the right coronary artery. A drug-eluted stent was used. Other cardiac medications were instituted. He was put on HACA protocol and rewarmed, and I evaluated him this morning. Fortunately, when I walked into the ICU room, he was awake and alert and jovially conversing with his family. Please see exam below. REVIEW OF SYSTEMS: A 10-point review of systems only pertinent to the HPI. For past medical history, social history, family history, home medications and allergies, see Dr. Downing's H and P. PHYSICAL EXAM: VITAL SIGNS: Blood pressure is 120/65. O2 saturations 98%. Respirations 13. GENERAL: The patient is awake and alert, conversing with this family. NEUROLOGIC: He named 5/5, follows commands 5/5 and repeated 5/5. No aphasia. Cranial nerve exam was normal II through VII. On motor exam, he has no focal weakness. No myoclonus. Coordination exam was unremarkable in the upper extremities. IMPRESSION AND PLAN: 1. Status post myocardial infarction and cardiac arrest. 2. Status post hypothermia after cardiac arrest protocol. Fortunately, the patient appears to have an excellent neurological prognosis after cardiac arrest. His exam, as noted above, shows no significant abnormalities at this point. Certainly, more subtle cognitive testing can be done by Speech and Occupational Therapies, and outpatient therapies can be recommended as indicated. No further recommendations now. We will sign off and follow up as needed. Please do not hesitate to call if there are any questions or change in neurologic status with this very pleasant patient. Fifty total minutes floor time in reviewing inpatient records, over 50% in counseling and coordination of care. /[id number]/MODL MTDD
--- NOTE | 2018-06-09 10:56 | ASMTCMCOM ---
CM Note CM Note Notes: Spoke with pt's mother to provide support and education about discharge process. She was interested in linking pt with a therapist who can help him cope with this traumatic event. She reports pt has a friend who is a therapist and that she has names of various therapists in the area and did not need a list from CM. Pt has a large support system, but still lives a lone. Pt discharge needs are TBD at this time. Therapies ordered today. [employer] contacted. CM to follow. Plan: TBD Date Signed: 06/09/2018 10:55 AM Electronically Signed By:OWEN Nelson
[2018-06-09] MEDS ORDERED: PERFLUTREN LIPID MICROSPHERES 1.1 MG/ML VIAL IV ONE ×2 (11:30→12:00)
--- NOTE | 2018-06-09 13:52 | ECHO ---
[email or web address] [address] [address] Main: [phone] Fax: Transthoracic Echocardiogram Name: JUAN LUIS MCGUIRE MR#: [id number] Study Date: 06/09/2018 Study Time: 12:01 PM Date of : 1970 Age: 47 year(s) Height: 172.7 cm (68 in.) Weight: 76.2 kg (168 lb.) BSA: 1.9 m2 Gender: Male Examination: Limited Echo with Definity Indication: R/O Intraventricular thrombus with definity contrast Image Quality: Adequate Contrast: 0.330 mg I.V. dose of Definity was administered to improve endocardial border definition. Requested by: Naeem Downing BP: / Heart Rate: Rhythm: Indication: R/O Intraventricular thrombus with definity contrast Procedure Staff Before And After School Daycare Worker: Nasra Hui [facility] Reading Physician: Miko Lipscomb MD Requesting Provider: Conclusions: Normal size left ventricle. Low normal left ventricular systolic function. EF is 51 %. No evidence of LV thrombus (using Definity echo contrast). Measurements: Chambers Valvular Assessment AV/MV Valvular Assessment TV/PV Normal Normal Normal Name Value Range Name Value Range Name Value Range LVEF (MOD4): 51 % (>=55 %) Continued Measurements: Findings: Left Ventricle: Normal size left ventricle. Low normal left ventricular systolic function. EF is 51 %. No evidence of LV thrombus (using Definity echo contrast). (No Signature Object) Patient: JUAN LUIS MCGUIRE Study Date: 06/09/2018 Page 1 of 1 12:01 PM [id number]
[2018-06-09] MEDS: ALBUTEROL 3 ML DEYVIAL IH SCH ×3 (15:57→20:12)
[2018-06-10 05:18] LABS: PLATELET COUNT 108 10^3/uL (150-400)
[2018-06-10] MEDS: ALBUTEROL 3 ML DEYVIAL IH SCH ×4 (05:30→20:43)
[2018-06-10] MEDS ORDERED: ACETAMINOPHEN 325 MG TAB PO PRN (05:51)
[2018-06-10] MEDS: FAMOTIDINE 20 MG TAB PO SCH (07:41)
[2018-06-10] MEDS: CARVEDILOL 3.125 MG TAB PO SCH ×2 (07:41→18:16)
[2018-06-10] MEDS: PRASUGREL HCL 10 MG TAB PO SCH (07:41)
[2018-06-10] MEDS: ASPIRIN 325 MG TAB TUBE SCH (07:41)
[2018-06-10] MEDS: ATORVASTATIN CALCIUM 40 MG TAB PO SCH (07:41)
[2018-06-10] MEDS: LISINOPRIL 5 MG TAB PO SCH (08:00)
[2018-06-10] MEDS: ERTAPENEM 1 GM in NS 100 ML IV SCH (08:00)
[2018-06-10] MEDS ORDERED: LORazepam 1 MG TAB PO PRN (10:27)
--- NOTE | 2018-06-10 12:28 | PDINTPN ---
Green End Worker Progress Note Assessment/Plan: Assessment: Status post cnv-th-qxyrgnhj cardiac arrest near [place]. Bystander CPR was initiated quickly. Paramedics reportedly arrived in approximately 15 min. Had a shockable rhythm with return of spontaneous circulation/pulse and blood pressure on seen. Intubated during transport. Transported to [facility] by helicopter. HACA: Status post protocol. Acute respiratory failure: Resolved. Extubated yesterday and has done well since. On room air now. Acute myocardial infarction. Thrombus in right coronary artery. Status post stenting... Cardiogenic shock. Present initially. Intra-aortic balloon used initially. Hemodynamics are stable. Ejection fraction slightly low at 51%. Anticoagulation: On aspirin and Effient. Heparin off Aspiration pneumonia. Secondary to arrest. Purulent secretions and right- sided atelectasis present. Status post therapeutic bronchoscopy with removal of secretions prior to extubation yesterday. Sputum culture negative so far. On bronchodilator therapies and ertapenem. Can be switched to oral Augmentin Prophylaxis: Will start subcu enoxaparin. On famotidine. Metabolic: Acidosis, resolved. Hypocalcemia. Elevated liver function tests: Likely secondary to mild shock liver, improving. Possible anoxic brain injury. Does not appear he has suffered a significant anoxic injury. However mild deficits do appear to be present. For cognitive evaluation. Prognosis: Excellent. Plan: Continue present care. Can transfer to PCU. Continue bronchopulmonary therapies. DC ertapenem, start Augmentin for a total of 7 days of antibiotics. Prophylactic enoxaparin ordered. Increase activity as tolerated. Speech and cognitive evaluation will be needed. 35 min of critical care time spent directly with the patient. Discussed with family, respiratory, nursing, and the ICU multi disciplinary team. Subjective: Doing well. Up in chair. Has some anterior chest pain as expected post compressions. Intermittent cough with some mucus, worse when he lays down at night. Objective: Vital Signs Temp Pulse Resp BP Pulse Ox 37.1 C 90 20 102/56 L 97 06/10/18 11:48 06/10/18 11:48 06/10/18 11:48 06/10/18 11:48 06/10/18 11:48 Microbiology 06/09/18 08:05 - Final Sputum, Induced/Suctioned Laboratory Results 06/10/18 04:40 06/10/18 04:40 06/09/18 06/10/1806/11/19 05:59 05:59 05:59 Intake Total 1794.7 1178 Output Total 950 775 Balance 844.7 403 PT 14.3 SEC (12.0-15.0) 06/09/18 05:50 INR 1.09 (0.83-1.16) 06/09/18 05:50 Laboratory Tests 06/09/18 06/10/18 06:55 04:40 Calcium 7.9 L Ionized Calcium 1.11 L Total Bilirubin 1.7 H AST 103 H ALT 75 H Albumin 2.7 L Cardiac echo yesterday: No evidence of thrombus. LV EF 51% CXR: Improved aeration of the right base. Physical Exam - Physical Exam General Appearance: alert, no apparent distress, other (Up in chair) EENT: PERRL/EOMI, other (On room air) Neck: normal inspection (No JVD) Respiratory: lungs clear (Anteriorly), decreased breath sounds (At bases), rales (Few bibasilar rales), rhonchi (Occasional rhonchi present), No wheezing Cardiac/Chest: regular rate, rhythm, No gallop Abdomen: normal bowel sounds, non-tender, soft Male Genitalia: other (Bustamante catheter out yesterday) Extremities: No pedal edema Neuro/Psych: no motor/sensory deficits (Moves all extremities equally), No cognition abnormalities (Cognition pretty good but slightly off, likely related to transient hypoxemia. Confused at times regarding date) ICD10 Worksheet Patient Problems: Problems Problem Status Onset Cardiac arrest Acute AMI inferior wall Acute
--- NOTE | 2018-06-10 13:28 | PDCARPN ---
Cardiology Progress Note Assessment/Plan: Mr. Cha is a 47-year-old male admitted June 06 after suffering an out-of- hospital cardiac arrest. Received immediate bystander CPR and had return of spontaneous circulation during helicopter transport to [facility]. An acute ST-segment elevation myocardial infarction was apparent on arrival. He underwent emergent cardiac catheterization and PCI of the RCA. Coronary Artery Disease: Cardiac catheterization demonstrated a high grade lesion in the mid-RCA which underwent PCI using a single drug coated stent. The LAD and circumflex had noncritical disease. - Aggressive secondary prevention. He is on beta angelica, CHONG inhibitor, statin , and DAPT. - DAPT currently consists of aspirin and Effient. Genetic testing for clopidogrel metabolism sent this am. Ischemic Cardiomyopathy: LVEF was 20-25% of the time of his catheterization. An echocardiogram performed on the second hospital day, reported his LVEF as 50% with inferior and inferolateral hypokinesis. There was mention of a possible intracavitary thrombus based on his left ventriculogram. Limited echo with Definity from yesterday showed LVEF 51% and no evidence of LV thrombus. - Continue current medications and will titrate beta angelica and CHONG inhibitor as allowed. Neurologic Status: No discernible deficits. 06/10/18 13:29 Subjective: No complaints. Reviewed/Discussed With: family Objective: Vital Signs (8 Hrs) Temp Pulse Resp BP Pulse Ox 06/10/18 11:48 37.1 C 90 20 102/56 L 97 06/10/18 09:40 98 20 96 06/10/18 08:00 90 15 102/66 96 06/10/18 07:41 93 102/66 Intake/Output (24 Hrs) 06/09/18 06/10/18 06/11/18 05:59 05:59 05:59 Intake Total 1794.7 1178 Output Total 950 775 Balance 844.7 403 Intake: Oral (ml) 500 IV Intake (ml) 340 IV Infused (ml) 1424.7 678 Calcium Gluconate 1 gm In 50 D5w 50 ml @ 100 mls/hr IV ONCE ONE Rx#: [id number] Ertapenem 1 gm In Ns 100 100 ml @ 200 mls/hr IV DAILY [facility] Rx#:[id number] Heparin/Dextrose 500 ml @ 213.9 177 Per Protocol IV CONT [facility] Rx#:[id number] NS W/ 20 KCl/L 1,000 ml @ 344 75 mls/hr IV CONT ROBERT Rx #:[id number] POTASSIUM Cl (KCl) 100 ml 193.7 @ 100 mls/hr IV Q1H ROBERT Rx#:[id number] POTASSIUM Cl (KCl) 50 ml 50 @ 50 mls/hr IV ONCE ONE Rx#:[id number] Propofol/Emulsion 100 ml 397 @ Per Protocol IV CONT ROBERT Rx#:[id number] Sodium Bicarbonate 150 444 meq In D5w 1,000 ml @ 100 mls/hr IV CONT ROBERT Rx#: [id number] Vecuronium [place] 50 mg 32 In D5w 50 ml @ Per Protocol IV CONT ROBERT Rx#: [id number] fentaNYL 1,000 mcg In Ns 7 100 ml @ Per Protocol IV CONT ROBERT Rx#:[id number] fentaNYL/NACL 100 ml @ 94.1 Per Protocol IV CONT ROBERT Rx#:[id number] Tube Flush (ml) 30 Output: Urine (ml) 875 775 Catheter 875 225 Urinal 550 OG Tube Output (ml) 75 Non-weighted Oral Stomach 75 Other: Intake Quantity Yes Sufficient Result Diagrams: 06/10/18 04:40 06/10/18 04:40 Cardiac Labs: Cardiac Lab Results (72 Hrs) 06/07/18 11:50 CK-MB (CK-2) Fraction 493.00 H Troponin I 53.100 H - Physical Exam Constitutional: WDWN, no apparent distress Eyes: anicteric sclera Ears, Nose, Mouth, Throat: moist mucous membranes Cardiovascular: regular rate and rhythm, no murmurs, no rubs, no gallops Respiratory: clear to auscultate bilat Gastrointestinal: normoactive bowel sounds, no tenderness, no masses Skin: no rashes, no edema Neurologic: AAOx3 Psychiatric: not anxious ICD10 Worksheet Patient Problems: Problems Problem Status Onset AMI inferior wall Acute Cardiac arrest Acute
[2018-06-10] MEDS: ENOXAPARIN 40 MG/0.4 ML SYR SC SCH (13:39)
[2018-06-10] MEDS: AMOXICILLIN/CLAVULANATE POT 875/125 MG TAB PO SCH (19:57)
[2018-06-11] MEDS: ALBUTEROL 3 ML DEYVIAL IH SCH ×4 (05:40→21:23)
--- NOTE | 2018-06-11 09:05 | CPEKG ---
Test Reason : OPEN Blood Pressure : / mmHG Vent. Rate : 112 BPM Atrial Rate : 111 BPM P-R Int : 177 ms QRS Dur : 125 ms QT Int : 327 ms P-R-T Axes : 091 082 097 degrees QTc Int : 447 ms Sinus tachycardia Nonspecific intraventricular conduction delay Inferior infarct, acute (RCA) Probable RV involvement, suggest recording right precordial leads Confirmed by Gael Romeo ([id number]) on 06/11/2018 9:04:47 AM Referred By: Naeem Downing Confirmed By:Gael Romeo
[2018-06-11] MEDS: ASPIRIN 325 MG TAB TUBE SCH (09:36)
[2018-06-11] MEDS: ENOXAPARIN 40 MG/0.4 ML SYR SC SCH (09:36)
[2018-06-11] MEDS: PRASUGREL HCL 10 MG TAB PO SCH (09:36)
[2018-06-11] MEDS: ATORVASTATIN CALCIUM 40 MG TAB PO SCH (09:36)
[2018-06-11] MEDS: CARVEDILOL 3.125 MG TAB PO SCH ×2 (09:37→18:16)
[2018-06-11] MEDS: AMOXICILLIN/CLAVULANATE POT 875/125 MG TAB PO SCH ×2 (09:37→20:47)
[2018-06-11] MEDS: FAMOTIDINE 20 MG TAB PO SCH (09:37)
[2018-06-11] MEDS: LISINOPRIL 5 MG TAB PO SCH (09:37)
--- NOTE | 2018-06-11 10:12 | PDCARPN ---
Cardiology Progress Note Assessment/Plan: Mr. Cha is a 47-year-old male admitted June 06 after suffering an out-of- hospital cardiac arrest. He received immediate bystander CPR and had return of spontaneous circulation during helicopter transport to [facility]. An acute ST-segment elevation myocardial infarction was apparent on arrival. He underwent emergent cardiac catheterization and PCI of the RCA. Coronary Artery Disease: Cardiac catheterization demonstrated a high grade lesion in the mid-RCA which underwent PCI using a single drug coated stent. The LAD and circumflex had noncritical disease. - Aggressive secondary prevention. He is on beta angelica, CHONG inhibitor, statin , and DAPT. - DAPT currently consists of aspirin and Effient. Genetic testing for clopidogrel metabolism has been sent. Will review results at his first office appointment and decide if he can be switched from Effient to clopidogrel. Ischemic Cardiomyopathy: LVEF was 20-25% of the time of his catheterization. An echocardiogram performed on the second hospital day, reported his LVEF as 50% with inferior and inferolateral hypokinesis. There was mention of a possible intracavitary thrombus based on his left ventriculogram. Limited echo with Definity from 06/09 showed LVEF 51% and no evidence of LV thrombus. - Continue current medications and will titrate beta angelica and CHONG inhibitor as allowed. Neurologic Status: No discernible cognitive deficits. Slight unsteadiness with walking. Aspiration pneumonia: Needs to complete a 7 day course of Augmentin. Disposition: Likely home tomorrow. Office will contact him to arrange a follow up appointment. 06/11/18 10:08 Reviewed/Discussed With: family Objective: Vital Signs (8 Hrs) Temp Pulse Resp BP Pulse Ox 06/11/18 07:37 36.9 C 88 20 110/73 88 L 06/11/18 05:40 90 18 93 06/11/18 04:00 36.9 C 88 16 104/56 L 95 Intake/Output (24 Hrs) 06/10/18 06/11/18 06/12/18 05:59 05:59 05:59 Intake Total 1178 400 Output Total 775 Balance 403 400 Intake: Oral (ml) 500 400 IV Infused (ml) 678 Calcium Gluconate 1 gm In 50 D5w 50 ml @ 100 mls/hr IV ONCE ONE Rx#: [id number] Ertapenem 1 gm In Ns 100 100 ml @ 200 mls/hr IV DAILY [facility]ERT Rx#:[id number] Heparin/Dextrose 500 ml @ 177 Per Protocol IV CONT ROBERT Rx#:[id number] NS W/ 20 KCl/L 1,000 ml @ 344 75 mls/hr IV CONT ROBERT Rx #:[id number] fentaNYL 1,000 mcg In Ns 7 100 ml @ Per Protocol IV CONT ROBERT Rx#:[id number] Output: Urine (ml) 775 Catheter 225 Urinal 550 Other: Intake Quantity Yes Sufficient Number of Voids Toilet 1 Result Diagrams: 06/10/18 04:40 06/11/18 04:19 - Physical Exam Constitutional: no apparent distress Eyes: anicteric sclera Ears, Nose, Mouth, Throat: moist mucous membranes Cardiovascular: regular rate and rhythm, no murmurs, no gallops Respiratory: clear to auscultate bilat Gastrointestinal: normoactive bowel sounds, no tenderness, no masses Neurologic: AAOx3 Psychiatric: interactive, not anxious ICD10 Worksheet Patient Problems: Problems Problem Status Onset AMI inferior wall Acute Cardiac arrest Acute
--- NOTE | 2018-06-11 12:20 | ASMTCMCOM ---
CM Note CM Note Notes: CM met w/ pt, pts friends and mom for dispo planning. PT is recommending home w/ 02/12 supervision. OT has cleared pt to d/c with outpatient rehab. Pt reports that he will be staying w/ some friends who will supervise him. Pt will follow up w/ outpatient cards and participate in outpatient cardiac rehab. No other needs at this time. CM available for changes. Plan: Independent Date Signed: 06/11/2018 12:19 PM Electronically Signed By:OWEN Dan
--- NOTE | 2018-06-11 16:28 | SOAPPROG ---
SOAP Progress Note Assessment/Plan: Assessment: Status post [id number] cardiac arrest near [place]. Bystander CPR was initiated quickly. Paramedics reportedly arrived in approximately 15 min. Had a shockable rhythm with return of spontaneous circulation/pulse and blood pressure on seen. Intubated during transport. Transported to [facility] by helicopter. HACA: Status post protocol. Acute respiratory failure: Resolved. Extubated 06/09 and has done well since. On room air. Acute myocardial infarction. Thrombus in right coronary artery. Status post stenting... Cardiogenic shock. Present initially. Intra-aortic balloon used initially. Hemodynamics subsequently stable. Ejection fraction slightly low at 51%. Anticoagulation: On aspirin and Effient. Heparin off Aspiration pneumonia. Secondary to arrest. Purulent secretions and right- sided atelectasis present. Status post therapeutic bronchoscopy with removal of secretions prior to extubation. Sputum culture negative. On bronchodilator therapies and ertapenem initially, Augmentin now. Prophylaxis: Will start subcu enoxaparin. On famotidine. Metabolic: Acidosis, resolved. Hypocalcemia. Elevated liver function tests: Likely secondary to mild shock liver, improving. Possible anoxic brain injury. Does not appear he has suffered a significant anoxic injury. However mild deficits do appear to be present. For cognitive evaluation. Prognosis: Excellent. Disposition: Likely home tomorrow per Cardiology Plan: Continue present care on PCU. Continue bronchopulmonary therapies for now, with Augmentin for a total of 5 days post discharge. Increase activity as tolerated. Subjective: Some cough, mucus but overall improving. Anterior chest pain is better. Objective: Vital Signs Temp Pulse Resp BP Pulse Ox 36.8 C 81 18 105/62 96 06/11/18 15:30 06/11/18 15:30 06/11/18 15:30 06/11/18 15:30 06/11/18 15:30 Microbiology 06/09/18 08:05 - Final Sputum, Induced/Suctioned Laboratory Results 06/10/18 04:40 06/11/18 04:19 06/10/18 06/11/18 06/12/18 05:59 05:59 05:59 Intake Total 1178 400 Output Total 775 Balance 403 400 PT 14.3 SEC (12.0-15.0) 06/09/18 05:50 INR 1.09 (0.83-1.16) 06/09/18 05:50 Physical Exam - Physical Exam General Appearance: alert, no apparent distress, other (Up in chair) EENT: PERRL/EOMI, other (On room air) Neck: normal inspection (No JVD) Respiratory: lungs clear (Anteriorly), decreased breath sounds, rales (Few remaining rales at right base. No consolidation), No wheezing Cardiac/Chest: regular rate, rhythm, No gallop Abdomen: normal bowel sounds, non-tender, soft Skin: normal color, warm/dry Extremities: No pedal edema Neuro/Psych: no motor/sensory deficits, No cognition abnormalities (Alert, oriented, responsive) ICD10 Worksheet Patient Problems: Problems Problem Status Onset Cardiac arrest Acute AMI inferior wall Acute
[2018-06-12] MEDS: ALBUTEROL 3 ML DEYVIAL IH SCH ×2 (05:17→11:04)
[2018-06-12] MEDS: LISINOPRIL 5 MG TAB PO SCH (08:51)
[2018-06-12] MEDS: AMOXICILLIN/CLAVULANATE POT 875/125 MG TAB PO SCH (08:51)
[2018-06-12] MEDS: ATORVASTATIN CALCIUM 40 MG TAB PO SCH (08:51)
[2018-06-12] MEDS: PRASUGREL HCL 10 MG TAB PO SCH (08:51)
[2018-06-12] MEDS: FAMOTIDINE 20 MG TAB PO SCH (08:51)
[2018-06-12] MEDS: ENOXAPARIN 40 MG/0.4 ML SYR SC SCH (08:51)
[2018-06-12] MEDS: CARVEDILOL 3.125 MG TAB PO SCH (08:52)
[2018-06-12] MEDS ORDERED: ASPIRIN 325 MG TAB PO SCH (09:00)
[2018-06-12 12:19] VITALS: BP 119/77
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
--- NOTE | 2018-06-12 13:41 | ASMTLACE ---
LACE Length of stay for Answers: 4-6 days current admission Acuity / Level of Answers: Yes Care: Did the patient have an inpatient admission? # of Emergency department Answers: 1-2 visits in the last 6 months Score: 8 Date Signed: 06/12/2018 01:40 PM Electronically Signed By:Christelle Jiménez RN
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
== END 2018-06-12 13:28 | disposition home or self-care (01) | DRG 270 ==
LOC: EDBD 16:15 → F2N 18:20 → F2W 06-10 17:07
PROVIDERS: ADMIT Internal Medicine Cardiovascular Disease; ATTEND Internal Medicine Cardiovascular Disease
PROC: 5A02210 Assistance with Cardiac Output using Balloon Pump, Continuous (ICD-10-PCS; principal; 2018-06-06)
PROC: 4A023N7 Measurement of Cardiac Sampling and Pressure, Left Heart, Percutaneous Approach (ICD-10-PCS; principal; 2018-06-06)
PROC: B2151ZZ Fluoroscopy of Left Heart using Low Osmolar Contrast (ICD-10-PCS; principal; 2018-06-06)
PROC: 02703ZZ Dilation of Coronary Artery, One Artery, Percutaneous Approach (ICD-10-PCS; principal; 2018-06-06)
PROC: 027034Z Dilation of Coronary Artery, One Artery with Drug-eluting Intraluminal Device, Percutaneous Approach (ICD-10-PCS; principal; 2018-06-06)
PROC: B2111ZZ Fluoroscopy of Multiple Coronary Arteries using Low Osmolar Contrast (ICD-10-PCS; principal; 2018-06-06)
PROC: 5A1945Z Respiratory Ventilation, 24-96 Consecutive Hours (ICD-10-PCS; 2018-06-06)
PROC: 0BCM8ZZ Extirpation of Matter from Bilateral Lungs, Via Natural or Artificial Opening Endoscopic (ICD-10-PCS; 2018-06-09)
DX: I21.09 ST elevation (STEMI) myocardial infarction involving other coronary artery of anterior wall (principal); I25.10 Atherosclerotic heart disease of native coronary artery without angina pectoris; J96.00 Acute respiratory failure, unspecified whether with hypoxia or hypercapnia; K72.00 Acute and subacute hepatic failure without coma; I46.2 Cardiac arrest due to underlying cardiac condition; I47.2 Ventricular tachycardia; E87.2 Acidosis; J69.0 Pneumonitis due to inhalation of food and vomit; E83.51 Hypocalcemia; Z23 Encounter for immunization
CPT/HCPCS: 80307; 81225-90; 82435-PO; 82565-PO; 82947-PO; 84132-PO; 84295-PO; 84484-ER; 84520-PO; 85014-ER; 85520-90; 92507-GN; 92523-GN; 96374; 97161-GP; 97166-GO; C1725; C1769; C1874; C1887; C8924; C9606; G0008; G0480; G0515-GO; J0282; J0461; J0583; J0610; J1335; J1644; J1650; J1815; J1940; J2250; J2704; J3010; J3475; J3480; J7613; Q9957; Q9967

== ENCOUNTER 2018-06-15 20:36 | Emergency (ER) | payer OTHER ==
--- NOTE | 2018-06-15 20:46 | EDPHY ---
H & P Stated Complaint: cardiac arrest 06/06 now having left toe numbness told to come in Time Seen by Provider: 06/15/18 20:46 HPI/ROS: CHIEF COMPLAINT: Numb toes HISTORY OF PRESENT ILLNESS: The patient is a 47 y/o male with CAD who had an out -of-hospital cardiac arrest 9 days ago requiring RCA stenting and HACA who arrives today complaining of left toe numbness that he noted around 11:00 this morning, about 10 hours ago. His 2-5th toes on his left foot began to feel like they had frostbite despite it being a warm day outside. He read through his discharge instructions and saw a note that if he experienced numbness he should go to the ED for evaluation of infection. Both feet feel cold and his left toes feel a bit sore. Symptoms are still present, but perhaps slightly better. His cardiac recovery has been going well and he is scheduled for cardiac follow up on Friday, 4 days from now. No back or buttock pain. REVIEW OF SYSTEMS: A ten system review of systems was performed and is negative with the exception of the items mentioned in the HPI. Past medical history: 1. Out of hospital cardiac arrest 06/06/18, cardiogenic shock, HACA 2. CAD Past surgical history: 1. RCA catheterization 06/06/18 2. Knee surgeries x3 Family history: Noncontributory Social history: Lives in [place] on [address], though currently staying with friends. Supervisor Prop Making: Dr. Lipscomb. General Appearance: Alert. Vital signs reviewed. Eyes: Pupils equal and round, no conjunctival injection, no discharge. Anicteric. ENT, Mouth: Mucous membranes are moist, no oropharyngeal erythema or edema. Neck: No lymphadenopathy, supple. Respiratory: Lungs are clear to auscultation; no wheezes, rales, or rhonchi. Cardiovascular: Regular rate and rhythm; no murmur, rub, or gallop. Gastrointestinal: Abdomen is soft and nontender, no masses or organomegaly. Skin: Warm and dry, no rashes on exposed skin, normal color. Back: Nontender to palpation over the thoracolumbar spine. No CVAT. Groin: Bruising right groin. Extremities: No lower extremity edema, no calf tenderness or swelling. Good capillary refill in all toes. Pulses: 2+dorsalis pedis pulses and tibialis pulses bilaterally. 2+ bilateral femoral pulses. Neurological: Alert and oriented. Moving all four extremities easily and equally. Sensation intact to light touch in both lower extremities. Psychiatric: Normal affect. - Personal History Current Tetanus/Diphtheria Vaccine: Yes Current Tetanus Diphtheria and Acellular Pertussis (TDAP): Yes - Medical/Surgical History Hx Asthma: No Hx Chronic Respiratory Disease: No Hx Diabetes: No Hx Cardiac Disease: Yes Hx Renal Disease: No Hx Cirrhosis: No Hx Alcoholism: No Hx HIV/AIDS: No Hx Splenectomy or Spleen Trauma: No Other PMH: left knee surgery, cardiac surgery - Social History Smoking Status: Former smoker Constitutional: Initial Vital Signs Temperature (C) 36.8 C 06/15/18 20:37 Heart Rate 77 06/15/18 20:37 Respiratory Rate 16 06/15/18 20:37 Blood Pressure 116/74 06/15/18 20:37 O2 Sat (%) 97 06/15/18 20:37 O2 Delivery Mode Room Air Allergies/Adverse Reactions: No Known Allergies Allergy (Verified 06/15/18 20:40) Home Medications: Medication Instructions Recorded Amoxicillin/Clavulanate Pot 875 mg PO BID #10 tab 06/11/18 [Augmentin 875 MG TAB (*)] Aspirin [Aspirin 325 mg (*)] 325 mg PO DAILY #30 tab 06/11/18 Atorvastatin Calcium [Lipitor 40 40 mg PO DAILY #30 tab 06/11/18 mg (*)] Carvedilol [Coreg (*)] 3.125 mg PO BIDMEAL #60 tab 06/11/18 LORazepam [Ativan (*)] 1 - 2 mg PO HS PRN #15 tab 06/11/18 Lisinopril [Zestril 5 mg (*)] 5 mg PO DAILY #30 tab 06/11/18 Prasugrel HCl [Effient 10mg (*)] 10 mg PO DAILY #30 tab 06/11/18 Medical Decision Making ED Course/Re-evaluation: This is a 47 y/o male with recent cardiac arrest post RCA stenting and HACA 9 days ago who presents with a 10-hour history of left toe numbness that spares his great toe. Both feet are somewhat cool with good capillary refill and strong dorsalis pedis and tibialis posterior pulses on doppler and by palpation. Symptoms do not seem connected to recent stenting (cath via right groin). No radicular signs on exam. 2199: Consulted with Dr. Cowan, cardiology. He cannot identify any concerning relationship between patient's symptoms and recent cardiac procedures. The 12 lead EKG was interpreted by myself. Sinus rhythm. See hard copy and/or "tracemaster" electronic copy for interpretation. Reevaluated patient. He remains unchanged. I do not suspect vascular occlusion and do not recommend further evaluation. He is reassured. Danger signs reviewed. Departure - Departure Disposition: Home, Routine, Self-Care Clinical Impression: Numbness of toes Condition: Good Instructions: Paresthesia (ED) Additional Instructions: Follow up with legal instructor as scheduled. Return to the ED for any worsening of condition. Referrals: Miko Lipscomb MD [Medical Doctor] - As per Instructions Report Scribed for: Breann Mcfarland Report Scribed by: Summer Quach Date of Report: 06/15/18 Time of Report: 21:10 Physician Review and Approval Statement: 06/15/18 20:46 Portions of this note were transcribed by the medical videographer. I, Dr. Breann Mcfarland, personally performed the history, physical exam, and medical decision- making; and confirmed the accuracy of the information in the transcribed note.
[2018-06-15 22:57] VITALS: BP 100/60
--- NOTE | 2018-06-15 23:29 | CPEKG ---
Test Reason : OPEN Blood Pressure : / mmHG Vent. Rate : 069 BPM Atrial Rate : 068 BPM P-R Int : 154 ms QRS Dur : 101 ms QT Int : 416 ms P-R-T Axes : 039 -07 -18 degrees QTc Int : 446 ms Sinus rhythm Inferior infarct, age indeterminate Baseline artifact Confirmed by Breann Mcfarland ([id number]) on 06/15/2018 11:28:42 PM Referred By: Breann Mcfarland Confirmed By:Breann Mcfarland
== END 2018-06-15 23:04 | disposition home or self-care (01) ==
DX: R20.0 Anesthesia of skin (principal)